=== PATIENT | female | born 1935 | race Caucasian/White ===

== ENCOUNTER 2017-03-16 13:13 | Emergency (ER) | payer MEDICARE ==
[~2017-03-16 13:13] MED LIST: ALDACTONE50 MG PO; ASPIR 8181 M1 PO; AUGMENTIN 500-1 EAC2 PO; BENAZEPRIL HCL40 MG PO; CEPHALEXIN MON500 MG NG; ENALAPRIL MALEA10 MG; FENOFIBRATE160 MG PO; FEOSOL PO; FISH OIL 1,0001 CA1; FOLIC ACID PO; FUROSEMIDE80 M2 PO; HYDROCHLOROTHIA25 MG; IBUPROFEN200 MG PO; LASIX20 MG PO; LASIX40 M1 PO; MACROBID100 MG/CAP PO; MACRODANTIN100 MG; METOPROLOL SUCC25 M1 PO; METOPROLOL TART50 MG; MICARDIS80 MG PO; NORCO 5/325 TAB1 TAB PO; OMEPRAZOLE MAGN20 M1 PO; SULAR40 MG PO; TEGRETOL200 MG PO; TUMS200 MG PO; VITAMIN C PO; VITAMIN D5000 UNI2 PO; VITAMIN E400 UNI4 PO; WOMEN'S ONE DAI1 TAB PO; ZOCOR20 M1 PO; [UNRECOGNIZED DRUG - OTHER] PO
== END 2017-03-16 14:24 | disposition left against medical advice (07) ==
LOC: EDMED 13:13
DX: R04.0 Epistaxis (principal); Z53.21 Procedure and treatment not carried out due to patient leaving prior to being seen by health care provider